=== PATIENT | male | born 1950 | race Caucasian/White ===

== ENCOUNTER 2023-03-23 08:00 | Outpatient (CLI) | payer MEDICARE ==
--- NOTE | 2023-03-24 08:06 | XRAY Report ---
PROCEDURE: Knee 4 View RT INDICATIONS: RIGHT KNEE PAIN TECHNIQUE: 4 views of the knee(s) were acquired. COMPARISON: None. FINDINGS: Bones: No fractures or dislocations. No suspicious bony lesions. Mild tricompartmental knee joint d egeneration. Mild joint space narrowing in the medial femorotibial compartment with weightbearing. Soft tissues: Small knee joint effusion. No suspicious soft tissue calcifications or masses. IMPRESSION: 1. No acute bony abnormality. 2. Mild degenerative joint disease. 3. Small knee joint effusion. Reviewed by: Saira Pimentel MD on 03/24/2023 8:05 AM [facility] Approved by: Saira Pimentel MD on 03/24/2023 8:05 AM [facility] Station ID: [id number]
== END 2023-03-23 23:59 | disposition home or self-care (01) ==
LOC: DI.WOS 08:00
PROVIDERS: ATTEND Physician Assistant Surgical
DX: M17.11 Unilateral primary osteoarthritis, right knee (principal); M25.461 Effusion, right knee